=== PATIENT | male | born 1960 | race African-American/Black ===

== ENCOUNTER 2023-06-21 14:09 | Inpatient (IN) | payer OTHER ==
[2023-06-21 14:42] VITALS: BMI 22.8
[2023-06-21] MEDS ORDERED: IBUPROFEN 400 MG TABLET (FP) PO PRN (16:05)
[2023-06-21] MEDS ORDERED: POLYETHYLENE GLYCOL (HEALTHYLAX) 3350 17 GM PACKET PO PRN (16:05)
[2023-06-21] MEDS ORDERED: NALOXONE HCL (KLOXXADO) 8 MG SPRAY NS PRN (16:05)
[2023-06-21] MEDS ORDERED: NALOXONE HCL 0.4 MG/ML VIAL IM PRN (16:05)
[2023-06-21] MEDS ORDERED: LOPERAMIDE HCL 2 MG CAPSULE PO PRN (16:05)
[2023-06-21] MEDS ORDERED: BENZONATATE 200 MG CAPSULE PO PRN (16:05)
[2023-06-21] MEDS ORDERED: guaiFENesin 600 MG TABLET.ER (FP) PO PRN (16:05)
[2023-06-21] MEDS ORDERED: hydrOXYzine PAMOATE 25 MG CAPSULE (FP) PO PRN (16:05)
[2023-06-21] MEDS: ACETAMINOPHEN 325 MG TABLET (FP) PO PRN (18:43)
[2023-06-21] MEDS: MELATONIN 5 MG TABLETS PO SCH (21:20)
[2023-06-21] MEDS: THIAMINE HCL 100 MG TABLET (FP) PO SCH (21:20)
[2023-06-21] MEDS: ALBUTEROL SO4 HFA INHALER IH PRN (22:48)
[2023-06-22] MEDS ORDERED: methaDONE HCL 10 MG TABLET PO SCH (08:30)
[2023-06-22] MEDS: PRENATAL VITAMINS W/ FOLIC ACID TABLET (FP) PO SCH (09:00)
[2023-06-22] MEDS: MAG HYDROX/AL HYDROX/SIMETH 30 ML UNIT-DOSE CUP PO PRN (09:01)
[2023-06-22] MEDS: PREDNISOLONE 5 MG PO SCH (11:33)
[2023-06-22] MEDS: GABAPENTIN 300 MG CAPSULE PO SCH (11:34)
[2023-06-22] MEDS: predniSONE 5 MG TABLET (UD) PO SCH (11:46)
[2023-06-22 12:12] LABS: HEMATOCRIT 32.2 % (35.4-49); HEMOGLOBIN 10.9 GM/dL (11.7-16.9); MCH 26.7 pg (25.7-33.7); MCHC 33.9 g/dl (32.0-35.9); MEAN CELL VOLUME 78.6 fl (80-96); MEAN PLT VOLUME 7.9 fl (7.5-11.1); PLATELET COUNT 231 10^3/uL (134-434); RBC 4.09 M/mm3 (4.00-5.60); RDW 14.6 % (11.9-15.9); WHITE BLOOD COUNT 7.1 K/mm3 (4.0-10.0)
[2023-06-22 12:26] LABS: POTASSIUM 4.5 mmol/L (3.5-5.1)
[2023-06-22 12:37] LABS: CALCIUM 8.9 mg/dL (8.5-10.1)
[2023-06-22 12:40] LABS: BLOOD UREA NITROGEN 17.7 mg/dL (7-18)
[2023-06-22 12:41] LABS: CREATININE 1.2 mg/dL (0.55-1.3)
[2023-06-22 12:43] LABS: TOT PROT 6.3 g/dl (6.4-8.2)
[2023-06-22 12:44] LABS: BILIRUBIN,TOTAL 0.2 mg/dL (0.2-1)
[2023-06-22] MEDS: HYDROCHLOROTHIAZIDE 12.5 MG CAPSULE (FP) PO SCH (16:44)
[2023-06-22] MEDS: FERROUS SO4 325 MG TABLET (FP) PO SCH (16:44)
[2023-06-22 18:01] LABS: SYPHILIS W/ RPR CONF NON-REACTIVE (NONREACTIVE)
[2023-06-22 18:09] LABS: PH,URINE 6.5 (5.0-8.0); URINE APPEARANCE CLEAR; URINE BILIRUBIN NEGATIVE (NEGATIVE); URINE COLOR YELLOW; URINE GLUCOSE (UA) NEGATIVE (NEGATIVE); URINE KETONE NEGATIVE (NEGATIVE); URINE LEUK ESTERASE NEGATIVE (NEGATIVE); URINE NITRITE NEGATIVE (NEGATIVE); URINE PROTEIN NEGATIVE (NEGATIVE); URINE UROBILINOGEN 0.2 mg/dL (0.2-1.0)
[2023-06-22] MEDS: BACLOFEN 10 MG TABLET (FP) PO SCH (21:07)
[2023-06-23] MEDS: methaDONE 40 MG, methaDONE 10 MG PO SCH (09:22)
[2023-06-23] MEDS ORDERED: methaDONE HCL 40 MG DISPERSABLE TABLET PO SCH (10:00)
[2023-06-25] MEDS: PRENATAL VITAMINS W/ FOLIC ACID TABLET (FP) PO PRN (09:51)
[2023-06-28] MEDS: BACLOFEN 10 MG TABLET (FP) PO PRN (21:11)
[2023-06-29] MEDS ORDERED: ALBUTEROL SO4 HFA INHALER IH PRN (08:13)
[2023-06-29] MEDS: IPRATROPIUM BR 0.02% 0.5 MG/2.5 ML VIAL.NEB. NEB SCH (11:29)
[2023-06-29] MEDS: TUBERCULIN PPD 5 TU/0.1ML VIAL ID ONE (15:28)
[2023-06-30] MEDS: IBUPROFEN 600 MG TABLET (FP) PO PRN (08:49)
[2023-06-30] MEDS ORDERED: methaDONE HCL 40 MG DISPERSABLE TABLET PO SCH (13:32)
[2023-06-30] MEDS: HYDROCHLOROTHIAZIDE 12.5 MG CAPSULE (FP) PO SCH (13:46)
[2023-06-30] MEDS: GABAPENTIN 100 MG CAPSULE PO SCH (21:08)
[2023-07-01] MEDS: MAGNESIUM HYDROX 2400MG/30ML ORAL SUSPENSION 30 ML CUP PO PRN (21:51)
[2023-07-04] MEDS ORDERED: IPRATROPIUM BR 0.02% 0.5 MG/2.5 ML VIAL.NEB. NEB PRN (10:15)
[2023-07-06] MEDS: LIDOCAINE 5% TOPICAL PATCH TP SCH (15:22)
[2023-07-06] MEDS: LIDOCAINE PATCH REMOVAL MC SCH (21:32)
[2023-07-11] MEDS: BENZOCAINE/MENTHOL (CHLORASEPTIC ) LOZENGE MM PRN (15:10)
[2023-07-13] MEDS: BISACODYL 5 MG TABLET.DR (FP) PO ONE (14:30)
[2023-07-14] MEDS: AMMONIUM LACTATE 12% LOTION 225 GM BOTTLE TP PRN (06:12)
[2023-07-14 11:07] VITALS: BP 154/84; PULSE 65; RESP 17; TEMP 97.6
== END 2023-07-14 10:32 | disposition home or self-care (01) | DRG 772 ==
LOC: YASAS 14:09 → Y3E 18:16
PROVIDERS: ADMIT Allergy & Immunology; ATTEND Psychiatry & Neurology Pain Medicine
PROC: HZ42ZZZ Group Counseling for Substance Abuse Treatment, Cognitive-Behavioral (ICD-10-PCS; principal; 2023-06-21)
DX: F11.20 Opioid dependence, uncomplicated (principal); F14.20 Cocaine dependence, uncomplicated; F17.210 Nicotine dependence, cigarettes, uncomplicated; F19.282 Other psychoactive substance dependence with psychoactive substance-induced sleep disorder; D64.9 Anemia, unspecified; I10 Essential (primary) hypertension; G47.00 Insomnia, unspecified; J45.909 Unspecified asthma, uncomplicated; J02.9 Acute pharyngitis, unspecified; L85.3 Xerosis cutis; M54.31 Sciatica, right side; Z86.69 Personal history of other diseases of the nervous system and sense organs
CPT/HCPCS: 0241U-QW; 36415; 80053; 81003; 82652; 83735; 85027; 86780; 86803; 87635; 93005; 93010; 94640; J0475